=== PATIENT | female | born 1950 | race Caucasian/White ===

== ENCOUNTER 2020-02-22 06:29 | Day surgery (SDC) | payer MEDICARE ==
[2020-02-22] VITALS (7 sets, daily range): BP systolic 125–146; BP diastolic 64–119
[~2020-02-22] VITALS: Ht 167.6 cm; Wt 75.9 kg
[~2020-02-22 06:29] MED LIST: CARI350T PO; CEPH-357 PO; CLON-527 PO; METH-234 PO; METH4TAB3 PO; METH500T PO; NAPR-56 PO; PHEN-786 PO; RES15C PO; VICODIN; ZOF4T PO
[2020-02-22] MEDS ORDERED: normal saline 1000ml 1,000 ML IV SCH ×2 (06:50→10:55)
[2020-02-22] MEDS ORDERED: cefazolin/dext.iso 2gm/50ml 50 ML IV ONE (06:50)
[2020-02-22 07:19] LABS: EOSINOPHILS # (AUTO) 0.4 X10'3 (0-0.9); HEMOGLOBIN 14.4 g/dl (12.0-16.0); LYMPHOCYTES # (AUTO) 1.5 X10'3 (1.1-4.8); MEAN CORPUSCULAR HEMOGLOBIN 33.3 PG (27.0-31.0); MEAN CORPUSCULAR VOLUME 98.1 FL (78-98); MONOCYTES # (AUTO) 0.5 X10'3 (0-0.9)
[2020-02-22 07:21] LABS: BASOPHILS # (AUTO) 0.1 X10'3 (0-0.2); EOSINOPHILS % (AUTO) 7.9 % (0-6); HEMATOCRIT 42.3 % (35.0-45.0); LYMPHOCYTES % (AUTO) 28.7 % (21-51); MEAN PLATELET VOLUME 7.6 FL (7.4-10.4); NEUTROPHILS # (AUTO) 2.8 X10'3 (1.8-7.7); NEUTROPHILS % (AUTO) 53.4 % (42-75); PLATELET COUNT 255 X10'3 (140-440); RED BLOOD COUNT 4.31 X10'6 (4.20-5.60); WHITE BLOOD COUNT 5.3 X10'3 (4.5-11.0)
[2020-02-22] MEDS ORDERED: CYCL-1 PO (07:22)
[2020-02-22] MEDS ORDERED: TRAM50TA2 PO (07:22)
[2020-02-22] MEDS ORDERED: DESV100T16 PO (07:22)
[2020-02-22] MEDS ORDERED: MELO-102 PO (07:22)
[2020-02-22 07:34] LABS: ALBUMIN 3.8 G/DL (3.4-5.0); ANION GAP 10 (8-16); BLOOD UREA NITROGEN 11 MG/DL (7-18); BUN/CREATININE RATIO 12.8 (6.6-38.0); CALCIUM 8.6 MG/DL (8.5-10.1); CHLORIDE 108 MMOL/L (99-107); CREATININE 0.86 MG/DL (0.40-0.90); GLUCOSE 114 MG/DL (70-104); POTASSIUM 3.7 MMOL/L (3.5-5.1); SODIUM 145 MMOL/L (135-145); eGFR 66 ML/MIN
[2020-02-22] MEDS ORDERED: midazolam 2 mg/2 ml injection ONE ×2 (08:28→09:27)
[2020-02-22] MEDS ORDERED: diphenhydrAMINE 50 mg/ml inj ONE (08:28)
[2020-02-22] MEDS ORDERED: LIDOcaine 1%/PF 5ML 10 MG/ML VIAL ONE (08:28)
[2020-02-22] MEDS ORDERED: fentaNYL/PF 50MCG/1 ML 2ML syringe ONE ×2 (08:28→09:27)
[2020-02-22] MEDS ORDERED: iohexol 300 MG/1 ML 50ml polymer ONE (08:28)
[2020-02-22] MEDS ORDERED: morphine 4 MG/ML inj SYRINge IV PRN (10:55)
[2020-02-22] MEDS ORDERED: HYDROcodone/acetaminophen 5mg/325mg tablet PO PRN (10:55)
== END 2020-02-22 12:15 | disposition home or self-care (01) ==
LOC: SSTAY O 06:29
PROVIDERS: ATTEND Radiology Vascular & Interventional Radiology
DX: M80.88XA Other osteoporosis with current pathological fracture, vertebra(e), initial encounter for fracture (principal); M54.5 Low back pain; K58.9 Irritable bowel syndrome, unspecified; F32.9 Major depressive disorder, single episode, unspecified; Z98.890 Other specified postprocedural states; Z79.899 Other long term (current) drug therapy; Z90.710 Acquired absence of both cervix and uterus; Z88.8 Allergy status to other drugs, medicaments and biological substances; F17.210 Nicotine dependence, cigarettes, uncomplicated; Z11.59 Encounter for screening for other viral diseases; W19.XXXA Unspecified fall, initial encounter; Y93.89 Activity, other specified; Y92.89 Other specified places as the place of occurrence of the external cause; Y99.8 Other external cause status
CPT/HCPCS: 22514; 36415; 72100; 80048; 85025; 99152; 99153; C1713; J1200; J2250; J3010; Q9967; U0003; 22512; 88173; 88305; 88342

== ENCOUNTER 2022-04-30 11:17 | Emergency (ER) | payer MEDICARE ==
[~2022-04-30] VITALS: Ht 167.6 cm; Wt 68.2 kg
[~2022-04-30 11:17] MED LIST changes: -CARI350T PO; -CEPH-357 PO; +CYCL-1 PO; +DESV100T16 PO; +MELO-102 PO; -METH-234 PO; -METH4TAB3 PO; -METH500T PO; -NAPR-56 PO; -PHEN-786 PO; -RES15C PO; +TRAM50TA2 PO; -VICODIN; -ZOF4T PO
--- NOTE | 2022-04-30 11:48 | NUR ---
XRAY AT BS
[2022-04-30 12:06] LABS: BASOPHILS % (AUTO) 0.6 % (0-1); EOSINOPHILS # (AUTO) 0.3 X10'3 (0-0.9); EOSINOPHILS % (AUTO) 5.5 % (0-6); HEMATOCRIT 43.6 % (35.0-45.0); LYMPHOCYTES # (AUTO) 1.3 X10'3 (1.1-4.8); LYMPHOCYTES % (AUTO) 23.7 % (21-51); MEAN CORPUSCULAR HEMOGLOBIN 34.3 PG (27.0-31.0); MEAN CORPUSCULAR HGB CONC 34.3 g/dL (33.0-36.5); MEAN CORPUSCULAR VOLUME 99.8 FL (78-98); MEAN PLATELET VOLUME 7.2 FL (7.4-10.4); MONOCYTES # (AUTO) 0.5 X10'3 (0-0.9); MONOCYTES % (AUTO) 9.4 % (2-12); NEUTROPHILS # (AUTO) 3.4 X10'3 (1.8-7.7); NEUTROPHILS % (AUTO) 60.8 % (42-75); PLATELET COUNT 232 X10'3 (140-440); RED BLOOD COUNT 4.37 X10'6 (4.20-5.60); RED CELL DISTRIBUTION WIDTH 13.2 % (11.5-14.5); WHITE BLOOD COUNT 5.6 X10'3 (4.5-11.0)
[2022-04-30 12:19] LABS: ALANINE AMINOTRANSFERASE 37 U/L (12-78); ALBUMIN 4.1 G/DL (3.4-5.0); ALBUMIN/GLOBULIN RATIO 1.4 (1.1-1.5); ALKALINE PHOSPHATASE 63 IU/L (46-116); ANION GAP 11 (8-16); ASPARTATE AMINO TRANSFERASE 23 U/L (10-37); BILIRUBIN,TOTAL 0.7 MG/DL (0.1-1.0); BLOOD UREA NITROGEN 11 MG/DL (7-18); BUN/CREATININE RATIO 17.2 (6.6-38.0); CALCIUM 8.9 MG/DL (8.5-10.1); CHLORIDE 106 MMOL/L (99-107); CREATININE 0.64 MG/DL (0.40-0.90); GLUCOSE 102 MG/DL (70-104); POTASSIUM 4.1 MMOL/L (3.5-5.1); SODIUM 142 MMOL/L (135-145); TOTAL CARBON DIOXIDE 24.7 MMOL/L (24-32); TOTAL PROTEIN 7.1 G/DL (6.4-8.2); eGFR > 90 ML/MIN
[2022-04-30] MEDS ORDERED: AMLO5TAB4 PO (13:28)
[2022-04-30] MEDS ORDERED: amLODIPine 5mg tablet PO ONE (13:30)
[2022-04-30 13:42] VITALS: BP 165/95
== END 2022-04-30 13:45 | disposition home or self-care (01) ==
LOC: ER 11:17
DX: I10 Essential (primary) hypertension (principal); F17.200 Nicotine dependence, unspecified, uncomplicated; F12.90 Cannabis use, unspecified, uncomplicated; Z88.8 Allergy status to other drugs, medicaments and biological substances
CPT/HCPCS: 36415; 71045; 80053; 83880; 84484; 85025; 93005; 99285

== ENCOUNTER → 2024-06-29 | Emergency (ER) | payer MEDICARE ==
[~2024-06-29] VITALS: Ht 165.1 cm; Wt 91.7 kg
[~2024-06-29] MED LIST changes: +AMLO5TAB4 PO; +PRED20TA PO; +TRIA15CR61 TOP
[2024-06-29 12:08] VITALS: BP 146/70; PULSE 79; RESP 18; TEMP 97.8; O2SAT 98
== END | disposition home or self-care (01) ==
LOC: ER 12:06
DX: L30.9 Dermatitis, unspecified (principal); I10 Essential (primary) hypertension; F12.90 Cannabis use, unspecified, uncomplicated; Z88.8 Allergy status to other drugs, medicaments and biological substances; Z79.899 Other long term (current) drug therapy
CPT/HCPCS: 99283

== ENCOUNTER 2025-08-22 12:31 | Emergency (ER) | payer MEDICARE ==
[~2025-08-22] VITALS: Ht 167.6 cm; Wt 64.6 kg
[~2025-08-22 12:31] MED LIST changes: -PRED20TA PO; -TRIA15CR61 TOP
--- NOTE | 2025-08-22 12:45 | Physician Documentation ---
History of Present Illness ~ Stated Complaint: INFECTED FINGER Time Seen by MD: 13:46 Primary Medical Doctor: YELENA seen 06/07 for same issue Source: patient Mode of Arrival: POV Exam Limitations: no limitations HPI 75-year-old female approximately 5 days ago was splitting wood and got a piece of wood in her left index finger she believes there is some retained splinters but is concerned because it looks infected. Medication Reconciliation Allergies: Coded Allergies: ziprasidone (Verified Allergy, Unknown, 08/22/25) Scheduled Amlodipine Besylate (Norvasc), 1 TAB PO DAILY Cephalexin*Monohydrate* (Keflex*), 1 CAP PO Q12H Clonazepam* (Klonopin*), 1 MG PO BID, (Reported) Cyclobenzaprine* (Cyclobenzaprine*), 1 TAB PO TID, (Reported) Desvenlafaxine Succinate (Desvenlafaxine Succinate ER), 1 TAB PO DAILY, (Reported) Meloxicam (Meloxicam), 1 TAB PO DAILY, (Reported) Tramadol Hcl (Tramadol Hcl), 1 TAB PO Q6H, (Reported) Past Medical History Past Medical History: Arrhythmia, Hypertension, Hernia, *PSYCH* Past Surgical History: other Alcohol Use: Heavy Drug Use: marijuana Lives with: Family Lives In: Home Occupation: retired Review of Systems All Other Systems at this time: Reviewed and Negative Integumentary: Reports: see HPI Physical Exam General Appearance General: Alert, no apparent distress. HEENT: moist mucous membranes. Neck: Full range of motion. Respiratory: No respiratory distress speaking in full sentences Chest: No accessory muscle use. Cardiovascular: Appears well perfused Neurologic: Oriented x4. Psychiatric: Normal mood and affect. Skin: Normal color, warm and dry. No edema, no ecchymosis. Left index finger with some maceration Wang a linear cut at the PIP joint. No obvious foreign body some erythema mild swelling sensation and movement intact Progress Results/Orders Results/Orders Orders - RADHA MILLS [employer] Finger(S) (08/22/25 14:51) Wound Care Orders (08/22/25 14:51) Completed Orders - RADHA MILLS [employer] Finger(S) (08/22/25 14:51) Bacitracin Ointment (Bacitracin Ointment (08/22/25 14:55) Cephalexin Capsule (Keflex Capsule) (08/22/25 14:55) Medications Received in ER Medications (Trade) Dose Ordered Sig/Constance Route PRN Reason Start Time Stop Time Status Last Admin Dose Admin (bacitracin ointment) 1 applic ONCE ONCE TP 08/22/25 14:55 08/22/25 14:56 DC 08/22/25 15:23 1 APPLIC (Keflex capsule) 500 mg ONCE ONCE PO 08/22/25 14:55 08/22/25 14:56 DC 08/22/25 15:23 500 MG Vital Signs 08/22/25 12:41 Temp 97.9 Pulse 84 Resp 16 B/P (MAP) 163/80 Pulse Ox 98 O2 Flow Rate 0 EKG/XRAY/CT/US/VASC/MRI Bone/Soft Tissue X-Ray (Ext.) : Additional Comment CLINICAL INDICATION: Index finger possible foreign body sliver TECHNIQUE: 3 views left finger DI FINGER(S) COMPARISON: None FINDINGS/IMPRESSION: : There is no evidence of acute fracture or dislocation. Soft tissues are unremarkable. No foreign body Medical Decision Making Additional information obtaine: N/A Findings Evaluate for any significant foreign body. Wound care and irrigation patient is adamant on digging out all of the splinters but no known splinters seen topical antibiotics and oral antibiotics prescribed Differential Dx:Considerations: Include: Cellulitis, Other Departure Time of Disposition: 15:16 Disposition: 01 HOME / SELF CARE / HOMELESS Impression: Primary Impression: Cellulitis, finger Condition: Stable Discharge Instructions: Cellulitis, Adult, [id number] Additional Instructions: Keep using antibiotic ointment there was no large foreign bodies that could be noted on the x-ray. Your body will naturally help push them out or in case them but it is safer to leave what is their then to try into small parts of slivers out. Take antibiotics as prescribed Referrals: NO PRIMARY CARE PROVIDER (PCP) Prescriptions Cephalexin*Monohydrate* (Keflex*) 500 Mg Capsule 1 CAP PO Q12H for 10 Days, #20 CAP Prov: RADHA MILLS [employer]ien [employer] 08/22/25 Education Educated: Patient Educated regarding: diagnosis, treatment, need for follow up Signature Scribe Signature: No scribe Attestation: The note accurately reflects work and decisions made by me.Radha OSPINA 08/22/25 15:19 RADHA MILLS NP Aug 22, 2025 12:45
[2025-08-22] MEDS ORDERED: CEPH-585 PO (15:19)
[2025-08-22] MEDS: bacitracin 15gm ointment TP ONE (15:23)
--- NOTE | 2025-08-22 15:24 | RADIOLOGY REPORT ---
CLINICAL INDICATION: Index finger possible foreign body sliver TECHNIQUE: 3 views left finger DI FINGER(S) COMPARISON: None FINDINGS/IMPRESSION: : There is no evidence of acute fracture or dislocation. Soft tissues are unremarkable. No foreign body
[2025-08-22 15:43] VITALS: BP 148/93; PULSE 74; RESP 16; TEMP 97.9; O2SAT 98
== END 2025-08-22 15:39 | disposition home or self-care (01) ==
LOC: ER 12:31
DX: L03.012 Cellulitis of left finger (principal); I10 Essential (primary) hypertension; F12.90 Cannabis use, unspecified, uncomplicated; Z88.8 Allergy status to other drugs, medicaments and biological substances; Z79.899 Other long term (current) drug therapy
CPT/HCPCS: 73140; 99283; J7120